=== PATIENT | male | born 2000 | race Two or more races ===

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

== ENCOUNTER 2020-05-10 03:09 | Emergency (ER) | payer OTHER ==
[2020-05-10 03:40] VITALS: BP 130/82; PULSE 110; TEMP 98.1; BMI 23.8
== END 2020-05-10 05:02 | disposition home or self-care (01) ==
LOC: JER 03:09
DX: F19.90 Other psychoactive substance use, unspecified, uncomplicated (principal)
CPT/HCPCS: 93005; 93010; 99283-25